=== PATIENT | female | born 1945 | race Hispanic/Latino ===

== ENCOUNTER 2018-08-01 14:41 | Emergency (ER) | payer MEDICARE ==
[2018-08-01 15:22] VITALS: BMI 22.6
--- NOTE | 2018-08-01 15:25 | ED PDOC ---
Arrival/HPI - General Time Seen by Provider: 08/01/18 14:46 Historian: Patient - History of Present Illness Narrative History of Present Illness (Text): 08/01/18 15:23 Patient is a 72 year old female who presents to the emergency department for right foot pain since 2 days ago. Patient was walking and everted her R foot while walking on uneven sidewalk 2 days ago. She reports that she has been applying ice but has had persistent pain so presented today to get an xray. Reports inability to bear weight. Denies fall, paresthesias, focal weakness, sensory deficit, ankle pain, knee pain, or hip pain. Time/Duration: Prior to Arrival, < week (2 days ago) Symptom Onset: Sudden Symptom Course: Unchanged Activities at Onset: Light Past Medical History - Provider Review Nursing Documentation Reviewed: Yes - Infectious Disease Hx of Infectious Diseases: None - Tetanus Immunization Tetanus Immunization: Unknown - Cardiac Hx Cardiac Disorders: Yes - Pulmonary Hx Asthma: Yes Hx Pneumonia: Yes - Neurological HX Cerebrovascular Accident: Yes (2014) - HEENT Hx HEENT Disorder: (WEARS RX GLASSES) - Renal Hx Renal Disorder: No - Endocrine/Metabolic Hx Endocrine Disorders: No - Hematological/Oncological Hx Blood Disorders: No - Integumentary Hx Dermatological Disorder: No - Musculoskeletal/Rheumatological Hx Arthritis: Yes - Gastrointestinal Hx Diverticulitis: Yes - Genitourinary/Gynecological Hx Genitourinary Disorders: No - Psychiatric Hx Psychophysiologic Disorder: Yes Hx Anxiety: Yes Hx Depression: Yes Hx Emotional Abuse: No Hx Physical Abuse: No Hx Substance Use: No - Past Surgical History Past Surgical History: No Previous - Anesthesia Hx Anesthesia: No - Suicidal Assessment Feels Threatened In Home Enviroment: No Family/Social History - Physician Review Nursing Documentation Reviewed: Yes Family/Social History: Unknown Family HX Smoking Status: Former Smoker Hx Alcohol Use: No Hx Substance Use: No Allergies/Home Meds Allergies/Adverse Reactions: Allergies No Known Allergies Allergy (Verified 08/01/18 15:56) Home Medications: Home Meds Medication Instructions Recorded Confirmed Metoprolol Tartrate [Lopressor] 50 mg PO DAILY 12/13/12 03/21/16 Montelukast [Singulair] 10 mg PO DAILY 07/26/14 03/21/16 buPROPion XL [Wellbutrin XL] 450 mg PO DAILY 07/26/14 03/21/16 clonazePAM [Klonopin] 0.5 mg PO TID 07/26/14 03/21/16 traZODone [Desyrel] 50 mg PO DAILY 07/26/14 03/21/16 Aspirin 325 mg PO DAILY 07/27/14 03/21/16 Escitalopram [Lexapro] 10 mg PO DAILY 03/21/16 03/21/16 Gabapentin [Neurontin] 300 mg PO BID 03/21/16 03/21/16 Montelukast [Singulair] 10 mg PO DAILY 03/21/16 03/21/16 Simvastatin 20 mg PO DAILY 03/21/16 03/21/16 Review of Systems - Review of Systems Constitutional: absent: Fatigue, Fevers Respiratory: absent: SOB, Cough, Sputum, Wheezing Cardiovascular: absent: Chest Pain Gastrointestinal: absent: Abdominal Pain, Constipation, Diarrhea, Nausea, Vomiting Musculoskeletal: Other (right foot pain). absent: Arthralgias (no ankle pain, knee pain, hip pain), Back Pain, Neck Pain Neurological: Gait Changes. absent: Headache, Dizziness, Focal Weakness, Other (no paresthesias, sensory deficit,) Physical Exam Vital Signs Reviewed: Yes Temperature: Afebrile Blood Pressure: Normal Pulse: Regular Respiratory Rate: Normal Appearance: Positive for: Well-Appearing, Non-Toxic, Comfortable Pain Distress: None Mental Status: Positive for: Alert and Oriented X 3 - Systems Exam Head: Present: Atraumatic, Normocephalic Mouth: Present: Moist Mucous Membranes Lower Extremity: Present: NORMAL PULSES, Other (swelling and bruising to R lateral foot, tenderness to base of R 5th toe, normal ROM at ankle, knee and hip. No tenderness at ankle, knee or hip. Distal pulses intact) Psychiatric: Present: Alert, Oriented x 3 Medical Decision Making ED Course and Treatment: 08/01/18 14:56 Impression: Patient is a 72 year old female who presents to the emergency department complaining of right foot pain s/p everting her right foot 2 days ago. Plan: -- Motrin Tab -- Right Foot X-Ray 3V -- Reassess and disposition Prior Visits: Notes and results from previous visits were reviewed. Progress Notes: 08/01/18 16:29 BONES: There is an obliquely oriented minimally displaced fracture in the proximal half of the 5th metatarsal. Spoke to podiatry resident. Reports to place patient in posterior splint, ice and elevate and NWB. Patient placed in posterior splint and informed that she should not bear weight. Reports that she will follow-up with Dr. Anguiano as instructed by Dr. Anguiano. - RAD Interpretation Radiology Orders: 08/01/18 15:22 FOOT RIGHT 3 VIEWS ROUTINE [RAD] Stat - Scribe Statement The provider has reviewed the documentation as recorded by the Scribe Humza Bianchi All medical record entries made by the Scribe were at my direction and personally dictated by me. I have reviewed the chart and agree that the record accurately reflects my personal performance of the history, physical exam, medical decision making, and the department course for this patient. I have also personally directed, reviewed, and agree with the discharge instructions and disposition. Disposition/Present on Arrival - Present on Arrival Any Indicators Present on Arrival: No History of DVT/PE: No History of Uncontrolled Diabetes: No Urinary Catheter: No History Surgical Site Infection Following: None - Disposition Have Diagnosis and Disposition been Completed?: Yes Diagnosis: Fracture of 5th metatarsal Disposition: HOME/ ROUTINE Disposition Time: 16:29 Patient Plan: Discharge Condition: GOOD Discharge Instructions (ExitCare): Foot Fracture (DC) Additional Instructions: ice and elevate foot. Keep foot in posterior splint. Do not bear weight. Follow-up with Dr. Anguiano within 1 week. Follow-up with Dr. Owens. Motrin or tylenol for pain. Percocet for severe breakthrough pain. Prescriptions: oxyCODONE/Acetaminophen [Percocet 5/325 mg Tab] 1 ea PO Q6 PRN #10 tab PRN Reason: Pain, Severe (8-10) Referrals: Aurelio Anguiano MD [Staff Provider] - Follow up with primary Forms: [employer] ([place]i)
[2018-08-01 15:31] VITALS: BP 134/93; PULSE 73; RESP 18; TEMP 98.3; O2SAT 95
--- NOTE | 2018-08-01 16:19 | RAD ---
Date of service: 08/01/2018 PROCEDURE: Right Foot Radiographs. HISTORY: pain to lateral side and R 5th toe COMPARISON: None. TECHNIQUE: 3 views obtained. FINDINGS: BONES: There is an obliquely oriented minimally displaced fracture in the proximal half of the 5th metatarsal. JOINTS: Normal. SOFT TISSUES: Normal. OTHER FINDINGS: None. IMPRESSION: There is an obliquely oriented minimally displaced fracture in the proximal half of the 5th metatarsal.
== END 2018-08-01 16:47 | disposition home or self-care (01) ==
LOC: ED 14:41
DX: S92.511A Displaced fracture of proximal phalanx of right lesser toe(s), initial encounter for closed fracture (principal); Y93.01 Activity, walking, marching and hiking; Y92.480 Sidewalk as the place of occurrence of the external cause; Z86.73 Personal history of transient ischemic attack (TIA), and cerebral infarction without residual deficits; Z87.891 Personal history of nicotine dependence